=== PATIENT | male | born 1975 | race Caucasian/White ===

== ENCOUNTER 2019-12-14 20:16 | Emergency (ER) | payer OTHER ==
[~2019-12-14] VITALS: Ht 170.2 cm; Wt 180.0 kg
--- NOTE | 2019-12-14 20:21 | PHYS DOC ---
Past History Past Surgical History Right inguinal hernia-repair, circumcision General Adult HPI: HPI: ".. I would have been here 2 to 3 hrs. ago.. but I did not want to expose my self to Covid... but the pain has gotten so bad.... It started in my back.. but now radiates down in my groin.. 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 Patient rates pain 10 out of 10 at its peak. Patient states pain came on acutely. Patient denies any trauma or injuries. Patient denies any past history of kidney stones or colitis with him or family members. Patient denies any intake of bad food. Patient ate 2 sausages earlier. Patient did have a normal stool earlier. 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 No specific ill contacts. No history im munosuppression. Patient has had previous right inguinal hernia repair. Review of Systems: Review of Systems: Constitutional: Denies fever or chills Eyes: Denies change in visual acuity HENT: Denies nasal congestion or sore throat Respiratory: Denies cough or shortness of breath Cardiovascular: Denies chest pain or edema GI: Complains of right flank and right lower abdominal pain, nausea,. Patient denies vomiting, bloody stools or diarrhea : Denies dysuria Musculoskeletal: Complains of right flank back pain . Integument: Denies rash Neurologic: Denies headache, focal weakness or sensory changes Endocrine: Denies polyuria or polydipsia Lymphatic: Denies swollen glands Psychiatric: Denies depression or anxiety Heart Score: Risk Factors: Risk Factors: DM, Current or recent (<one month) smoker, HTN, HLP, family history of CAD, obesity. Risk Scores: Score 0 - 3: 2.5% MACE over next 6 weeks - Discharge Home Score 4 - 6: 20.3% MACE over next 6 weeks - Admit for Clinical Observation Score 7 - 10: 72.7% MACE over next 6 weeks - Early Invasive Strategies Family History: Family History: Noncontributory to presentation Current Medications: Current Meds: See nursing for home meds Allergies: Allergies: No known drug allergies Physical Exam: PE: Constitutional: in acute distress, non-toxic appearance. [] HENT: Normocephalic, atraumatic, bilateral external ears normal, oropharynx moist, no oral exudates, nose normal. [] Eyes: PERRLA, EOMI, conjunctiva normal, no discharge. [] Neck: Normal range of motion, no tenderness, supple, no stridor. [] Cardiovascular:Heart rate regular rhythm, no murmur [] Lungs & Thorax: Bilateral breath sounds equal at apexes on auscultation [] Abdomen: Bowel sounds decreased, soft, right lower quadrant tenderness, no masses, no pulsatile masses. [] Rebound to the right lower quadrant. Some pain on percussion of right flank. Circumcised male no penile discharge. Testicles are nontender to palpation. Old surgery scar right lower quadrant. Patient deferred rectal at this time. Patient denies history of tarry stools. Skin: Warm, dry, no erythema, no rash. [] Back: No tenderness, right CVA tenderness on percussion Extremities: No tenderness, no cyanosis, no clubbing, ROM intact, no edema. [] Neurologic: Alert and oriented X 3, normal motor function, normal sensory function, no focal deficits noted. [] Psychologic: Affect anxious, judgement normal, mood normal. [] EKG: EKG: [] Radiology/Procedures: Radiology/Procedures: [[address] [address] IMAGING REPORT Signed PATIENT: MALCOLM HERNANDEZ EACCOUNT: [id number] : 1975 LOCATION: ER AGE: 44 SEX: M EXAM STATUS: REG ER ORD. PHYSICIAN: RADHA SOSA MD REASON: Rt. flank pain, X A FEW HOURS PROCEDURE: CT ABDOMEN PELVIS WO CONTRAST Exam: CT of abdomen and pelvis without contrast INDICATION: Right flank pain TECHNIQUE: Sequential axial images through the abdomen and pelvis obtained without IV contrast. Sagittal and coronal reformatted images were reconstructed from the axial data and reviewed. Comparisons: None FINDINGS: Heart size is normal. No pericardial effusion. Visualized lung bases are clear. No pleural effusion. Evaluation of the solid organs is limited secondary to noncontrast technique. Liver, spleen, pancreas, gallbladder and adrenals are unremarkable. Mild right-sided perinephric stranding is noted. There is a 4 mm calculus at the distal right ureter. Nonobstructing 2 to 3 mm calculus at the upper pole of the left kidney. No other ureteral calculi. Bladder is distended and appears thin-walled. Prostate is not enlarged. Large and small bowel are unremarkable. Appendix is normal. No free intra-abdominal air or fluid. No obstruction. Abdominal aorta has a normal course and caliber. No enlarged intra-abdominal lymph nodes are identified. No suspicious osseous lesions or acute fractures. 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 IMPRESSION: 1. A 4 mm calculus at the distal right ureter with associated mild right-sided perinephric stranding and hydronephrosis. 2. Nonobstructing 3 mm calculus at the upper pole of the left kidney. Exposure: One or more of the following in the visualized dose reduction techniques were utilized for this examination: 1. Automated exposure control 2. Adjustment of the MA and/or KV according to patient size 3. Use of iterative of reconstructive technique Electronically signed by: Dereje Reid MD (12/14/2019 9:59 PM) [id number] DICTATED AND SIGNED BY: DEREJE REID MD DATE: 12/14/192158 CC: RADHA SOSA MD; PCP,UNKNOWN ~ ][place] [address] IMAGING REPORT Signed PATIENT: MALCOLM HERNANDEZ EACCOUNT: [id number] : 1975 LOCATION: ER AGE: 44 SEX: M EXAM STATUS: REG ER ORD. PHYSICIAN: RADHA SOSA MD REASON: pain Rt. lower, x 3 hours PROCEDURE: ACUTE ABDOMEN SERIES Exam: Acute abdominal series INDICATION: Pain, right lower for 3 hours TECHNIQUE: Frontal view of chest with upright and supine views of the abdomen Comparisons: None FINDINGS: The cardiomediastinal silhouette and pulmonary vessels are within normal limits. The lung and pleural spaces are clear. Air and stool are noted throughout the colon to level the rectum in a nonobstructive bowel gas pattern. No free air. No suspicious masses or calcifications. No suspicious osseous lesions or acute fractures. IMPRESSION: 1. No acute cardiopulmonary process. 2. Nonobstructive bowel gas pattern. Electronically signed by: Dereje Reid MD (12/14/2019 9:21 PM) [id number] DICTATED AND SIGNED BY: DEREJE REID MD DATE: 12/14/192120 CC: RADHA SOSA MD; PCP,UNKNOWN ~ Course & Med Decision Making: Course & Med Decision Making Pertinent Labs and Imaging studies reviewed. (See chart for details). Push fluids. Get adequate rest. Take Zofran 8 mg up to 4 times a day for active vomiting. Take Flomax 0.4 mg nightly. Save stone if passed. Follow-up primary care. Tylenol and ibuprofen for pain. For marked pain may take Vicoprofen. Return if any concerns. Impression: 1. Abdomen pain 2. Renal Stone Rt. 3. Hematuria [] Dragon Disclaimer: Dragon Disclaimer: This electronic medical record was generated, in whole or in part, using a voice recognition dictation system. Departure Departure: Disposition: 01 HOME/RESIDENCE PRIOR TO ADM Condition: STABLE Scripts Tamsulosin Hcl (FLOMAX) 0.4 Mg Cap.er.24h 0.4 MG PO daily=hs for smooth muscle , #30 CAP.SR Prov: RADHA SOSA MD 12/14/19 Ondansetron Hcl (ZOFRAN) 8 Mg Tablet 8 MG PO QIDPRN PRN for for active vomiting, #30 BOTTLE Prov: RADHA SOSA MD 12/14/19 Hydrocodone/Ibuprofen (HYDROCODONE-IBUPROFEN 7.5-200 ) 1 Each Tablet 1 TAB PO PRN Q6HRS PRN for PAIN, #30 TAB 0 Refills Prov: RADHA SOSA MD 12/14/19 Dragon Disclaimer This chart was dictated in whole or in part using Voice Recognition software in a busy, high-work load, and often noisy Emergency Department environment. It may contain unintended and wholly unrecognized errors or omissions. RADHA SOSA MD Dec 14, 2019 20:21
[2019-12-14] MEDS ORDERED: ONDANSETRON PF 4 MG/2 ML VIAL. ONE (20:31)
[2019-12-14] MEDS ORDERED: FAMOTIDINE 20 MG/2 ML VIAL ONE (20:32)
[2019-12-14] MEDS ORDERED: IV RINGERS SOLUTION,LACTATED 1,000 ML IV SCH (20:32)
[2019-12-14] MEDS ORDERED: MORPHINE SULFATE 10 MG/ML SYRINGE. ONE (20:32)
[2019-12-14] MEDS ORDERED: KETOROLAC 30 MG/ML VIAL. ONE (20:32)
[2019-12-14] MEDS ORDERED: MORPHINE SULFATE 10 MG/ML SYRINGE. SQ ONE (20:45)
[2019-12-14] MEDS ORDERED: FAMOTIDINE 20 MG/2 ML VIAL IVP ONE (20:45)
[2019-12-14] MEDS ORDERED: KETOROLAC 30 MG/ML VIAL. IVP ONE (20:45)
[2019-12-14] MEDS ORDERED: ONDANSETRON PF 4 MG/2 ML VIAL. IVP ONE (20:45)
[2019-12-14 21:09] LABS: BASO % 0 % (0-3); EOS # 0.1 x10^3/uL (0.0-0.7); EOS % 1 % (0-3); HEMATOCRIT 43.4 % (39.0-53.0); HEMOGLOBIN 14.6 g/dL (13.0-17.5); LYMPH # 1.2 x10^3/uL (1.0-4.8); LYMPH % 19 % (24-48); MEAN CORPUSCULAR HEMOGLOBIN 29 pg (25-35); MEAN CORPUSCULAR HGB CONC 34 g/dL (31-37); MEAN CORPUSCULAR VOLUME 87 fL (79-100); MONO # 0.4 x10^3/uL (0.0-1.1); MONO % 6 % (0-9); NEUT # 4.7 x10^3uL (1.8-7.7); NEUT % 74 % (31-73); PLATELET COUNT 213 x10^3/uL (140-400); RED BLOOD COUNT 5.02 x10^6/uL (4.30-5.70); RED CELL DISTRIBUTION WIDTH 14.1 % (11.5-14.5); WHITE BLOOD COUNT 6.4 x10^3/uL (4.0-11.0)
[2019-12-14 21:12] LABS: CALCIUM 8.6 mg/dL (8.5-10.1); CREATININE 1.3 mg/dL (0.7-1.3); POTASSIUM 3.5 mmol/L (3.5-5.1)
[2019-12-14 21:12] LABS: BARBITURATES NEG (NEG); BENZODIAZEPINES NEG (NEG); CANNABINOIDS NEG (NEG); COCAINE NEG (NEG); METHADONE NEG (NEG); OPIATES NEG (NEG); PHENCYCLIDINE NEG (NEG)
[2019-12-14 21:13] LABS: AMPHETAMINE/METHAMPHETAMINE NEG (NEG)
[2019-12-14 21:17] LABS: BILIRUBIN,URINE NEG (NEG); CLARITY,URINE HAZY; COLOR,URINE YELLOW; GLUCOSE,URINE 100 mg/dL (NEG); NITRITE,URINE NEG (NEG)
[2019-12-14 21:18] LABS: DIRECT BILIRUBIN 0.2 mg/dL (0.0-0.2); TOTAL BILIRUBIN 0.6 mg/dL (0.2-1.0); TOTAL PROTEIN 7.8 g/dL (6.4-8.2)
[2019-12-14 21:18] LABS: BACTERIA,URINE 0 /HPF (0-FEW); RBC,URINE >40 /HPF (0-2); SQUAMOUS EPITHELIAL CELL,UR OCC /LPF; WBC,URINE 0 /HPF (0-4)
--- NOTE | 2019-12-14 21:24 | RAD ---
Exam: Acute abdominal series INDICATION: Pain, right lower for 3 hours TECHNIQUE: Frontal view of chest with upright and supine views of the abdomen Comparisons: None FINDINGS: The cardiomediastinal silhouette and pulmonary vessels are within normal limits. The lung and pleural spaces are clear. Air and stool are noted throughout the colon to level the rectum in a nonobstructive bowel gas pattern. No free air. No suspicious masses or calcifications. No suspicious osseous lesions or acute fractures. IMPRESSION: 1. No acute cardiopulmonary process. 2. Nonobstructive bowel gas pattern. Electronically signed by: Dereje Marsh MD (12/14/2019 9:21 PM) [id number]
--- NOTE | 2019-12-14 22:02 | RAD ---
Exam: CT of abdomen and pelvis without contrast INDICATION: Right flank pain TECHNIQUE: Sequential axial images through the abdomen and pelvis obtained without IV contrast. Sagittal and coronal reformatted images were reconstructed from the axial data and reviewed. Comparisons: None FINDINGS: Heart size is normal. No pericardial effusion. Visualized lung bases are clear. No pleural effusion. Evaluation of the solid organs is limited secondary to noncontrast technique. Liver, spleen, pancreas, gallbladder and adrenals are unremarkable. Mild right-sided perinephric stranding is noted. There is a 4 mm calculus at the distal right ureter. Nonobstructing 2 to 3 mm calculus at the upper pole of the left kidney. No other ureteral calculi. Bladder is distended and appears thin-walled. Prostate is not enlarged. Large and small bowel are unremarkable. Appendix is normal. No free intra-abdominal air or fluid. No obstruction. Abdominal aorta has a normal course and caliber. No enlarged intra-abdominal lymph nodes are identified. No suspicious osseous lesions or acute fractures. 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 IMPRESSION: 1. A 4 mm calculus at the distal right ureter with associated mild right-sided perinephric stranding and hydronephrosis. 2. Nonobstructing 3 mm calculus at the upper pole of the left kidney. Exposure: One or more of the following in the visualized dose reduction techniques were utilized for this examination: 1. Automated exposure control 2. Adjustment of the MA and/or KV according to patient size 3. Use of iterative of reconstructive technique Electronically signed by: Dereje Marsh MD (12/14/2019 9:59 PM) [id number]
[2019-12-14 22:03] VITALS: BP 148/98
[2019-12-14] MEDS ORDERED: HYDR-1179 PO (22:17)
[2019-12-14] MEDS ORDERED: TAMS0.4C97 PO (22:17)
[2019-12-14] MEDS ORDERED: ONDA8TAB9 PO (22:17)
[2019-12-14] MEDS ORDERED: TAMSULOSIN 0.4 MG CAP.ER.24H. PO ONE (22:30)
== END 2019-12-14 22:30 | disposition home or self-care (01) ==
LOC: ER 20:16
DX: N13.2 Hydronephrosis with renal and ureteral calculous obstruction (principal); R31.9 Hematuria, unspecified
CPT/HCPCS: 36415; 74022; 74176; 80048; 80076; 80307; 81001; 82150; 83690; 85025; 85610; 85730; 96374; 96375; 99285; J1885; J2405; J3490; J7120